=== PATIENT | male | born 1985 | race Caucasian/White ===

== ENCOUNTER 2018-06-14 13:54 | Emergency (ER) | payer MEDICAID ==
[2018-06-14] VITALS (9 sets, daily range): BP systolic 106–134; BP diastolic 37–62
[~2018-06-14] VITALS: Ht 175.3 cm; Wt 67.5 kg
--- NOTE | 2018-06-14 14:19 | NUR ---
pt ambulatory with steady gait to room
--- NOTE | 2018-06-14 14:24 | NUR ---
pt given gown
[2018-06-14] MEDS ORDERED: SODIUM CHLORIDE FLUSH 10ML SYR IVF ONE (14:30)
--- NOTE | 2018-06-14 14:57 | NUR ---
32 Y/O MALE PRESENTS TO ED WITH C/O WEAKNESS. "I HAVE CHRONIC GI BLEEDING. IT'S RECTALLY. I'VE HAD ENDOSCOPY AND COLONOSCOPY. MY SAID I WAS STARTING TO LOOK PALE AND MADE ME COME IN. 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 NO C/O N/V/D, TRAUMA, SYNCOPE, CP, SOB.
[2018-06-14 15:01] LABS: ALANINE AMINOTRANSFERASE 104 U/L (12-78); ALBUMIN 4.1 g/dL (3.4-5.0); ANION GAP 5 mmol/L (5-15); CALCIUM 8.2 mg/dL (8.5-10.1); CHLORIDE 111 mmol/L (98-107); CREATININE 0.86 mg/dL (0.7-1.3)
[2018-06-14 15:03] LABS: ALKALINE PHOSPHATASE 55 U/L (45-117); BILIRUBIN,TOTAL 0.2 mg/dL (0.2-1.0); TOTAL PROTEIN 7.7 g/dL (6.4-8.2)
--- NOTE | 2018-06-14 15:11 | NUR ---
PT RESTING ON GURNEY. BEDSIDE. NO ACUTE DISTRESS NOTED. NO NEEDS REQUESTED AT THIS TIME.
[2018-06-14 15:15] LABS: MD YES; MEAN CORPUSCULAR HEMOGLOBIN 16.4 pg (27.5-34.5); MEAN CORPUSCULAR VOLUME 57.9 fL (81-97); MEAN PLATELET VOLUME 8.2 fL (7.4-10.4); PLATELET COUNT 443 x10^3/uL (130-400); RED BLOOD COUNT 4.05 x10^6/uL (4.38-5.82); RED CELL DISTRIBUTION WIDTH 20.4 % (9.4-14.8)
[2018-06-14 15:40] LABS: MEAN CORPUSCULAR HGB CONC 28.3 g/dL (33.2-36.2)
[2018-06-14 15:44] LABS: BASOS#(MANUAL) 0.06 x10^3/uL (0-0.1); BASOS% (MANUAL) 1 % (0-1); EOS#(MANUAL) 0.41 x10^3/uL (0.0-0.4); EOS% (MANUAL) 7 % (1-7); LYMPH#(MANUAL) 1.57 x10^3/uL (1-3.4); LYMPHS% (MANUAL) 27 % (22-44); MONOS#(MANUAL) 0.29 x10^3/uL (0.3-2.7); MONOS% (MANUAL) 5 % (2-9); NRBC % (MANUAL) 1 % (0-1); SEG#(MANUAL) 3.48 x10^3/uL (1.8-6.8); SEGS% (MANUAL) 60 % (42-75)
[2018-06-14 15:46] LABS: ANISOCYTOSIS 1+; HYPOCHROMIA 1+; POLYCHROMASIA 1+
[2018-06-14 15:47] LABS: MICROCYTOSIS 1+; OVALOCYTES 1+; TARGET CELLS 2+
[2018-06-14 15:48] LABS: <PLATELET ESTIMATE> ADEQUATE; <PLT MORPHOLOGY> NORMAL PLT MORPH
--- NOTE | 2018-06-14 15:56 | NUR ---
PT AMBULATORY WITH STEADY GAIT TO BATHROOM.
--- NOTE | 2018-06-14 16:56 | NUR ---
PT TO IMAGING
--- NOTE | 2018-06-14 17:10 | NUR ---
PT BACK FROM IMAGING.
[2018-06-14] MEDS ORDERED: OMNIPAQUE 350 MG/ML, 100ML BOTTLE ONE (17:20)
--- NOTE | 2018-06-14 18:56 | NUR ---
PT RESTING ONGURNEY. NO ACUTE DISTRESS NOTED. TOLERATING BLOOD INFUSION WITH NO COMPLICATIONS. BEDSIDE. NO NEEDS REQUESTED AT THIS TIME.
--- NOTE | 2018-06-14 18:57 | NUR ---
LATE ENTRY FOR 1819 FIRST UNIT OF PRBC STARTED. VSS. BEDSIDE. NO ACUTE DISTRESS NOTED. PT WATCHING TV ONGURNEY. NO NEEDS REQUESTED AT THIS TIME.
--- NOTE | 2018-06-14 19:00 | NUR ---
bedside report to LASHA Velasquez
--- NOTE | 2018-06-14 20:07 | NUR ---
pt tranfusion of 1 unit prbc completed. pt tolerated well. purple slip sent to blood bank for request of 2nd unit.
--- NOTE | 2018-06-14 20:16 | NUR ---
pt ambulated to registration desk with steady gait. pt assisted back to bed and reattached to bp cuff, pulse oximeter and director market research. pt vs taken and stable and updated in emr. rn rach at bs for 2 rn verification of 2nd unit of blood
--- NOTE | 2018-06-14 20:51 | NUR ---
PT VSS AND UPDATED IN EMR. PT TOLERATING TRANSFUSION WELL.
--- NOTE | 2018-06-14 21:45 | NUR ---
PT TRANSFUSION COMPLETE. PT TOLERATES WELL AND STATES "I ALREADY FEEL BETTER THAN I DID.' PT VSS AND UPDATED IN EMR. PT DENIES ANY OTHER NEEDS AT THIS TIME.
--- NOTE | 2018-06-14 21:56 | NUR ---
PT VSS AND UPDATED IN EMR. PT DENIES ANY OTHER NEEDS AT THIS TIME. PER ERP, PT IS OKAYTO D/C
--- NOTE | 2018-06-14 22:11 | NUR ---
PT D/C WITH D/C SUMMARY AND SCRIPTS. PT VERBALIZES UNDERSTANDING OF HOME CARE INSTRUCTIONS AND F/U PLAN. PT DENIES ANY OTHER NEEDS PERTAINING TO THIS VISIT. PT D/C IN CARE OF SPOUSE WHO WILL BE DRIVING PT HOME. PT VSS AND UPDATED IN EMR. PT AMBULATES TO REGISTRATION DESK WITH STEADY GAIT.
== END 2018-06-14 22:13 | disposition home or self-care (01) ==
LOC: ED 18:20
DX: K64.4 Residual hemorrhoidal skin tags (principal); K92.1 Melena; F17.200 Nicotine dependence, unspecified, uncomplicated
CPT/HCPCS: 36415; 74174; 80053; 85025; 86850; 86900; 86923; 99284; P9016; Q9967

== ENCOUNTER 2019-08-26 14:58 | Emergency (ER) | payer MEDICAID, OTHER ==
[~2019-08-26] VITALS: Ht 177.8 cm; Wt 63.6 kg
--- NOTE | 2019-08-26 15:24 | NUR ---
Pt to room now.
--- NOTE | 2019-08-26 15:57 | NUR ---
Pt here for blood transfusion from senior care. Pt reports he does not know what bleeding disorder he has. Pt reports felling tired but no pain. Pt reports could be gi related. pt vss and had abnormal labs at the senior care.
[2019-08-26] MEDS ORDERED: PLEASE ENTER HEIGHT AND WEIGHT MC SCH (16:00)
[2019-08-26 16:07] LABS: ALBUMIN 3.8 g/dL (3.4-5.0); ANION GAP 6 mmol/L (5-15); CALCIUM 8.7 mg/dL (8.5-10.1); CHLORIDE 104 mmol/L (98-107); CREATININE 0.89 mg/dL (0.7-1.3); MEAN CORPUSCULAR HEMOGLOBIN 15.2 pg (27.5-34.5); MEAN CORPUSCULAR VOLUME 54.4 fL (81-97); MEAN PLATELET VOLUME 7.9 fL (7.4-10.4); PLATELET COUNT 585 x10^3/uL (130-400); RED BLOOD COUNT 4.73 x10^6/uL (4.38-5.82); RED CELL DISTRIBUTION WIDTH 22.1 % (9.4-14.8)
[2019-08-26 16:59] LABS: MD YES
[2019-08-26] MEDS ORDERED: SODIUM CHLORIDE FLUSH 10ML SYR IVF ONE (17:00)
[2019-08-26 17:03] LABS: LYMPH#(MANUAL) 2.18 x10^3/uL (1-3.4); LYMPHS% (MANUAL) 26 % (22-44); MONOS#(MANUAL) 0.84 x10^3/uL (0.3-2.7); MONOS% (MANUAL) 10 % (2-9); REACTIVE LYMPHS # (MANUAL) 0.25 x10^3/uL (0-0); REACTIVE LYMPHS % (MANUAL) 3 % (0-0); SEG#(MANUAL) 5.12 x10^3/uL (1.8-6.8); SEGS% (MANUAL) 61 % (42-75)
[2019-08-26 17:05] LABS: <PLATELET ESTIMATE> INCREASED; HYPOCHROMIA 3+; MICROCYTOSIS 2+; OVALOCYTES 1+; POLYCHROMASIA 1+; TARGET CELLS 1+; TEAR DROPS 1+
[2019-08-26 17:06] LABS: <PLT MORPHOLOGY> NORMAL PLT MORPH
[2019-08-26 17:28] VITALS: BP 128/69
[2019-08-26 17:30] VITALS: BP 124/76
--- NOTE | 2019-08-26 17:34 | NUR ---
PT VERY DEMANDING WITH RN, REQUESTING SNACKS AND FOOD AND WANTING TO "ORDER" HIS FOOD. PT HAD MEAL TRAY ORDERED FOR HIM. PT ALSO INFORMED OF EXPECTATIONS AND THE WE WILL USE BEAR PAW FOR HEATER. PT WOULD LIKE RN TO BRING WARM BLANKET WITH HIM INTO ROOM.
[2019-08-26 17:45] VITALS: BP 127/74
--- NOTE | 2019-08-26 17:47 | NUR ---
Pt given meal tray.
--- NOTE | 2019-08-26 18:47 | NUR ---
transfusion completeed, flush in process
[2019-08-26 19:01] VITALS: BP 145/82
--- NOTE | 2019-08-26 19:09 | NUR ---
Patient/Caregiver given discharge instructions and they have confirmed that they understand the instructions. Patient ambulatory with steady gait.
== END 2019-08-26 19:13 | disposition home or self-care (01) ==
LOC: ED 15:58
DX: D64.9 Anemia, unspecified (principal)
CPT/HCPCS: 36415; 36430; 80048; 82040; 85025; 86850; 86900; 86923; 99285; P9016